=== PATIENT | male | born 1990 | race African-American/Black ===

== ENCOUNTER 2019-03-10 14:56 | Emergency (ER) | payer OTHER ==
[~2019-03-10] VITALS: Ht 182.9 cm; Wt 77.1 kg
[2019-03-10 15:00] VITALS: Ht 182.9 cm; Wt 77.1 kg
[2019-03-10 15:28] VITALS: BP 116/70
== END 2019-03-10 15:28 | disposition home or self-care (01) ==
LOC: ED 14:56
DX: S61.012A Laceration without foreign body of left thumb without damage to nail, initial encounter (principal); W26.8XXA Contact with other sharp object(s), not elsewhere classified, initial encounter; Y93.89 Activity, other specified; Y92.89 Other specified places as the place of occurrence of the external cause; Y99.8 Other external cause status